=== PATIENT | male | born 1970 | race Two or more races ===

== ENCOUNTER 2024-05-04 17:51 | Emergency (ER) | payer OTHER ==
[~2024-05-04] VITALS: Ht 170.2 cm; Wt 102.1 kg
[2024-05-04] MEDS ORDERED: KETOROLAC TROMETHAMINE 60 MG VIAL IM ONE ×2 (23:00→23:14)
== END 2024-05-05 00:02 | disposition home or self-care (01) ==
LOC: ER 17:53
DX: M70.50 Other bursitis of knee, unspecified knee (principal)